=== PATIENT | male | born 1955 | race Two or more races ===

== ENCOUNTER 2022-01-30 23:20 | Emergency (ER) | payer OTHER ==
[~2022-01-30] VITALS: Ht 162.6 cm; Wt 63.5 kg
--- NOTE | 2022-01-30 23:50 | NUR ---
TO ER BED 10. BIB [facility] IN [facility] FROM [facility] FOR C/O WEAKNESS AND DIZZINESS SINCE MONDAY. DENIES ANY CHEST PAIN. NOT IN RESPIRATORY DISTRESS. CONNECTED TO MONITOR. AWAITING MD HUTCHINSON
--- NOTE | 2022-01-31 00:01 | NUR ---
LAB AT BEDSIDE
[2022-01-31 00:29] LABS: BASOPHILS % (AUTO) 0.4 % (0.0-2.0); EOSINOPHILS % (AUTO) 9.8 % (0.0-6.0); HEMATOCRIT 45 % (39-51); HEMOGLOBIN 15.3 g/dL (13.5-17.5); LYMPHOCYTES # (AUTO) 1.2 K/uL (0.8-4.8); LYMPHOCYTES % (AUTO) 18.4 % (20.0-44.0); MEAN CORPUSCULAR HGB CONC 34 g/dl (31.0-36.0); MEAN CORPUSCULAR VOLUME 102 fL (80-96); MONOCYTES # (AUTO) 0.6 K/uL (0.1-1.30); MONOCYTES % (AUTO) 8.8 % (2.0-12.0); NEUTROPHILS # (AUTO) 4.2 K/uL (1.8-8.9); NEUTROPHILS % (AUTO) 62.6 % (43.0-81.0); PLATELET COUNT (AUTO) 199 K/uL (150-450); RED BLOOD CELL COUNT(AUTO) 4.42 MIL/uL (4.5-6.0); WHITE BLOOD COUNT (AUTO) 6.7 K/uL (4.3-11.0)
[2022-01-31 00:37] LABS: CALCIUM, SERUM 9.2 mg/dL (8.5-10.1); CREATININE 0.9 mg/dL (0.6-1.3); POTASSIUM 4.4 mmol/L (3.5-5.1)
[2022-01-31 00:48] VITALS: BP 131/80
--- NOTE | 2022-01-31 00:48 | NUR ---
Patient discharged to residential in stable condition. Written and verbal after care instructions given. Patient verbalizes understanding of instruction.
== END 2022-01-31 00:49 ==
LOC: ER 23:25
DX: R53.1 Weakness (principal)
CPT/HCPCS: 36415; 80048-TC; 85025-TC